=== PATIENT | female | born 1990 | race Caucasian/White ===

== ENCOUNTER → 2017-02-10 | Outpatient (CLI) | payer OTHER ==
[~2017-02-10] MED LIST: ALBUTEROL0.09 MG/A1 INH; PREDNISONE20 M1 PO; TESSALON PERLE100 M1 PO; ZITHROMAX250 MG PO
== END | disposition home or self-care (01) ==
LOC: MRI 13:36
DX: M25.731 Osteophyte, right wrist (principal); R22.33 Localized swelling, mass and lump, upper limb, bilateral

== ENCOUNTER 2017-12-09 14:41 | Emergency (ER) | payer OTHER ==
[~2017-12-09] VITALS: Ht 162.5 cm; Wt 65.8 kg
[2017-12-09] MEDS ORDERED: PREDNISONE10 MG PO (15:09)
== END 2017-12-09 16:12 | disposition home or self-care (01) ==
LOC: ED 14:41
DX: R06.2 Wheezing (principal); R05 Cough; R09.81 Nasal congestion

== ENCOUNTER 2019-09-18 20:23 | Inpatient (IN) | payer OTHER ==
[~2019-09-18] VITALS: Ht 162.6 cm; Wt 68.7 kg
[~2019-09-18 20:23] MED LIST changes: +PREDNISONE10 MG PO
[2019-09-18 20:26] VITALS: BP 134/84
[2019-09-18 20:56] LABS: HEMOGLOBIN 13.8 g/dl (12.0-16.0); MEAN CELL VOLUME 88.4 fl (81.0-99.0); MEAN CORPUSCULAR HGB 31.3 pg (27.0-31.0); MEAN CORPUSCULAR HGB CONC 35.4 g/dl (33.0-37.0); MEAN PLATELET VOLUME 9.3 fl (9.6-12.3); PLATELET COUNT AUTOMATED 338 10*3/uL (130-400); RED BLOOD COUNT 4.41 10*6/uL (4.10-5.10); RED CELL DISTRI WIDTH 11.8 % (0-14.5); WHITE BLOOD COUNT 13.5 10*3/uL (4.8-10.8)
[2019-09-18 21:12] LABS: ALBUMIN 3.8 gm/dl (3.1-4.5); ALKALINE PHOSPHATASE 78 U/L (45-117); BUN 10 mg/dl (7-24); CHLORIDE 107 mmol/L (98-107); CREATININE 0.82 mg/dL (0.55-1.02); POTASSIUM 3.5 mmol/L (3.5-5.1); SGOT/AST 19 IU/L (3-35); SGPT/ALT 34 U/L (12-78); SODIUM 139 mmol/L (136-145); TOTAL PROTEIN 7.1 gm/dL (6.4-8.2)
[2019-09-18 21:16] LABS: BASOPHILS 2 % (0-1); TOTAL CELLS COUNTED 100 #CELLS
[2019-09-18 21:17] LABS: PLATELET SUFFICIENCY NORMAL (NORMAL)
[2019-09-19 00:26] VITALS: BP 125/75
--- NOTE | 2019-09-19 00:26 | NUR ---
A 29, admitted to 5E, under the services of CATA Zhou DO with a diagnosis of MASTOIDITIS. Chief complaint is MULTIPLE COMPLAINTS. Patient arrived via wheel chair from ER. Initial assessment completed. Vital signs taken and recorded. CATA ZHOU DO notified of admission to the unit. Orders received. See assessment for past medical history, medications and allergies. Patient and/or family oriented to unit. [address] visitation policy reviewed. Clothing/patient valuable form completed. PT WOULD LIKE TO RECEIVE FLU VACCINE DURING ADMISSION. NO WOUNDS. SKIN WDI. DOROTEO ONEILL
--- NOTE | 2019-09-19 01:00 | NUR ---
DR MAYNARD NOTIFIED OF UPDATED MED REC.
--- NOTE | 2019-09-19 01:37 | NUR ---
TORADOL ADMINISTERED FOR PT C/O HEADACHE AND RIGHT EAR PAIN RATED A 7/10 ON THE PAIN SCALE. WILL CONTINUE TO MONITOR.
[2019-09-19 08:00] VITALS: BP 102/81
--- NOTE | 2019-09-19 08:30 | NUR ---
PT REQUESTS SOMETHING FOR PAIN TO RIGHT SIDE OF FACE/RIGHT EAR. WILL NOTIFY PHYSICIAN AND REQUEST SOMETHING FOR PAIN.
--- NOTE | 2019-09-19 08:38 | NUR ---
DR PICKARD GIVES ORDERS TO GIVE PT TORADOL 30 MG VIA IV NOW. WILL ENTER ORDER AND GIVE WHEN AVAILABLE TO PULL.C
--- NOTE | 2019-09-19 09:14 | NUR ---
TORADOL 30 MG GIVEN AT THIS TIME TO PT IV IN LAC. IV SITE PATENT, FLUSHING WITH EASE AND GIVES GOOD BLOOD RETURN. NO OTHER S/S OF DISTRESS NOTED. RESPIRATIONS EASY AND UNLABORED ON ROOM AIR. ASSESSMENT COMPLETE. CALL LIGHT IN REACH.
--- NOTE | 2019-09-19 10:14 | NUR ---
PT STATES THAT TORADOL IS EFFECTIVE AT THIS TIME.
[2019-09-19 12:00] VITALS: BP 115/75
[2019-09-19 16:00] VITALS: BP 108/65
--- NOTE | 2019-09-19 16:07 | NUR ---
Quality Control Representative in to talk to patient. Patient states lives at HOME with . There are NO steps in the home. Physician: TERRANCE ANGEELS Pharmacy: [facility] Home health services: NONE Patient's level of ADLs: INDEPENDENT Patient has working utilities: YES DME: NONE Follow-up physician's appointment after d/c: WILL BE MADE BY HOSPITALIST NURSE DIRECTOR ON DISCHARGE Does patient want to access PORTAL?: NO Discharge plan PT LIVES AT HOME WITH AND IS INDEPENDENT IN HER CARE. DENIES SHSE WILL HAVE NEEDS ON DISCHARGE. WILL RETURN HOME WHEN MEDICALLY STABLE. WILL CONTINUE TO FOLLOW. STATES HER WILL TAKE HER HOME. LEIA OLSON
[2019-09-19] MEDS ORDERED: LEVAQUIN500 M2 PO (16:12)
--- NOTE | 2019-09-19 17:00 | NUR ---
Discharge instructions reviewed with patient/family. Patient receptive and verbalizes understanding. Follow-up care arranged. Written instructions given to patient/family. SCOTT NEGRON
== END 2019-09-19 17:00 | disposition home or self-care (01) | DRG 153 ==
LOC: ED 20:23 → 5E 23:17 → EDHOLD 23:17 → 5E 23:36
PROVIDERS: Emergency Medicine; ADMIT Internal Medicine
DX: H70.001 Acute mastoiditis without complications, right ear (principal); J45.909 Unspecified asthma, uncomplicated; H92.01 Otalgia, right ear; D72.829 Elevated white blood cell count, unspecified; G43.909 Migraine, unspecified, not intractable, without status migrainosus; Z96.22 Myringotomy tube(s) status; Z82.49 Family history of ischemic heart disease and other diseases of the circulatory system; Z79.899 Other long term (current) drug therapy

== ENCOUNTER 2020-06-13 14:20 | Emergency (ER) | payer OTHER ==
[~2020-06-13] VITALS: Ht 162.5 cm; Wt 78.9 kg
[~2020-06-13 14:20] MED LIST changes: +LEVAQUIN500 M2 PO
[2020-06-13 15:23] LABS: BASO % 0.3 % (0.0-1.0); EOS # 0.3 10*3/uL (0.0-0.4); EOS % 3.1 % (1.0-4.0); LYMPH # 2.5 10*3/uL (1.3-4.4); MEAN CELL VOLUME 89.8 fl (81.0-99.0); MEAN CORPUSCULAR HGB 30.6 pg (27.0-31.0); MEAN CORPUSCULAR HGB CONC 34.1 g/dl (33.0-37.0); MONO # 0.6 10*3/uL (0.1-1.0); NEUT # 5.4 10*3/uL (2.3-7.9); NEUT % 61.1 % (47.0-73.0); PLATELET COUNT AUTOMATED 229 10*3/uL (130-400); RED BLOOD COUNT 4.12 10*6/uL (4.10-5.10); WHITE BLOOD COUNT 8.8 10*3/uL (4.8-10.8)
[2020-06-13 15:34] LABS: ACT PARTIAL THROMBO TIME 30.3 SECONDS (20.0-32.1)
[2020-06-13 15:43] LABS: ALBUMIN 2.9 gm/dl (3.1-4.5); ALKALINE PHOSPHATASE 122 U/L (45-117); BUN 8 mg/dl (7-24); CHLORIDE 114 mmol/L (98-107); CREATININE 0.66 mg/dL (0.55-1.02); LIPASE 106 U/L (73-393); POTASSIUM 3.4 mmol/L (3.5-5.1); SGOT/AST 37 IU/L (3-35); SGPT/ALT 62 U/L (12-78); SODIUM 144 mmol/L (136-145); TOTAL PROTEIN 6.6 gm/dL (6.4-8.2); TROPONIN I < 0.015 ng/ml (<0.045)
== END 2020-06-13 17:35 | disposition home or self-care (01) ==
LOC: ED 14:20
PROVIDERS: Nurse Practitioner Family
DX: O90.89 Other complications of the puerperium, not elsewhere classified (principal); R07.89 Other chest pain; R06.02 Shortness of breath; Z79.899 Other long term (current) drug therapy

== ENCOUNTER → 2021-09-09 | Outpatient (CLI) | payer OTHER | END | disposition home or self-care (01) | LOC: US 07-24 07:30 | PROVIDERS: ATTEND Nurse Practitioner Primary Care | DX: K76.0 Fatty (change of) liver, not elsewhere classified (principal); R19.7 Diarrhea, unspecified ==

== ENCOUNTER 2024-10-10 21:20 | Emergency (ER) | payer OTHER ==
[~2024-10-10] VITALS: Ht 162.5 cm; Wt 77.1 kg
[2024-10-10] MEDS ORDERED: Ondansetron Hydrochloride 4 MG/2 ML VIAL IV ONE (21:55)
[2024-10-10] MEDS ORDERED: diphenhydrAMINE hydrochloride 50 MG/ML VIAL IV ONE (21:55)
[2024-10-10] MEDS ORDERED: SODIUM CHLORIDE 0.9% 1,000 ML IV ONE (21:55)
[2024-10-10] MEDS ORDERED: Ketorolac Tromethamine 30 MG/ML VIAL IV ONE (21:55)
== END 2024-10-11 00:10 | disposition home or self-care (01) ==
LOC: ED 21:20
DX: G43.909 Migraine, unspecified, not intractable, without status migrainosus (principal); Z79.899 Other long term (current) drug therapy; Z79.2 Long term (current) use of antibiotics